=== PATIENT | male | born 1955 | race Caucasian/White ===

== ENCOUNTER → 2016-10-25 | Outpatient (CLI) | payer BC ==
--- NOTE | ~2016-10-25 | CT138 ---
[facility] A Service of [facility] RADIOLOGY TEXT RESULTS PATIENT: ISIAH CHAMORRO [facility]: [id number] : 59 UNIT #: [id number] AGE: [address]: Melvin Hall MD SEX: M ORDER DR: [id number] [address] [address] [id number] O MR#: [id number] #: [id number] NAME: ISIAH CHAMORRO : 1955 SEX: M STUDY DATE/TIME: 10/25/2016 7:22 UNIT: [facility] ROOM: STUDY DESCRIPTION: CT Lung screening initial Attending Physician: Melvin Hall M.D. Referring Physician: Melvin Hall M.D. Ordering Physician: Melvin Hall M.D. Primary Care Physician: Melvin Hall M.D. MEDICAL IMAGING REPORT This report is preliminary unless electronic signature is present EXAM CT lung cancer screening INDICATIONS Lung cancer screening. [id number] smoking history. PROCEDURE Unenhanced low-dose CT of the chest performed per lung cancer screening protocol. CTDI is 3.0 mGy. Total DLP 147 mGy/cm. COMPARISON None FINDINGS Centrilobular emphysema. No suspicious pulmonary nodule. No adenopathy. No acute findings in the included upper abdomen. No aggressive appearing bone lesion. IMPRESSION 1. Emphysema. 2. No suspicious pulmonary nodule. Per the ACR Lung RADS recommendations suggest patient continue with annual low-dose lung cancer screening. Dictated by... Aryan Lancaster M.D. THIS IS AN ELECTRONICALLY VERIFIED REPORT Aryan Lancaster M.D. at 10/26/2016 10:02 AM EED/to TD: 10/25/2016 13:59 JOB #: [id number] [facility] A Service of [facility] RADIOLOGY TEXT RESULTS PATIENT: ISIAH CHAMORRO [facility] #: [id number] : 59 UNIT #: [id number] AGE: [address]: Melvin Hall MD SEX: M ORDER DR: MEDICAL IMAGING REPORT Page 1 of 1 COPY
== END | disposition home or self-care (01) ==
LOC: CCAT 06:59
DX: F17.210 Nicotine dependence, cigarettes, uncomplicated (principal); J43.9 Emphysema, unspecified
CPT/HCPCS: G0297